=== PATIENT | male | born 1945 | race Caucasian/White ===

== ENCOUNTER 2017-11-14 07:30 | Inpatient (IN) | payer MEDICARE ==
[~2017-11-14] VITALS: Ht 180.3 cm; Wt 133.8 kg
[~2017-11-14 07:30] MED LIST: AMLO10TA PO; ATOR40TA71 PO; DOCU-28 PO; LISI1TAB13 PO; METO25TA6 PO
[2017-12-01 13:26] LABS: BASOPHILS % (AUTO) 0.4 % (0-1); CLARITY,URINE CLEAR (Clear); COLOR,URINE YELLOW (Yellow); EOSINOPHILS # (AUTO) 0.2 X10'3 (0-0.9); EOSINOPHILS % (AUTO) 1.8 % (0-6); GLUCOSE, URINE NEGATIVE (Neg); KETONES,URINE NEGATIVE (Neg); LEUKOCYTE ESTERASE ,URINE NEGATIVE (Neg); LYMPHOCYTES # (AUTO) 2.4 X10'3 (1.1-4.8); LYMPHOCYTES % (AUTO) 24.2 % (21-51); MEAN CORPUSCULAR HEMOGLOBIN 31.1 PG (27.0-31.0); MEAN CORPUSCULAR HGB CONC 34.1 % (33.0-36.5); MEAN CORPUSCULAR VOLUME 91.3 FL (78-98); MEAN PLATELET VOLUME 8.4 FL (7.4-10.4); MONOCYTES # (AUTO) 1.3 X10'3 (0-0.9); NEUTROPHILS # (AUTO) 5.9 X10'3 (1.8-7.7); NEUTROPHILS % (AUTO) 60.6 % (42-75); NITRITES, URINE NEGATIVE (Neg); OCCULT BLOOD,URINE NEGATIVE (Neg); PH,URINE 5.5 (4.8-8.0); PRE OP HEMATOCRIT 47.7 % (42.0-52.0); PRE OP HEMOGLOBIN 16.3 g/dL (14.0-17.9); PRE OP PLATELET COUNT 257 X10'3 (140-440); PROTEIN,URINE NEGATIVE (Neg); RED BLOOD COUNT 5.23 X10'6 (4.70-6.10); RED CELL DISTRIBUTION WIDTH 13.4 % (11.5-14.5); UROBILINOGEN,URINE 0.2 E.U/dL (0.2-1.0)
[2017-12-01 13:31] LABS: UA COLLECTION TYPE CLN CATCH MIDSTREAM
[2017-12-01] MEDS ORDERED: CALC1TAB PO (13:32)
[2017-12-01 13:35] LABS: PRE OP PROTIME 10.6 SECONDS (9.0-12.0)
[2017-12-01 13:37] LABS: HEMOGLOBIN A1C 6.1 % (4.5-6.2)
[2017-12-01 13:42] LABS: ALBUMIN 3.8 G/DL (3.4-5.0); ALKALINE PHOSPHATASE 79 IU/L (46-116); BLOOD UREA NITROGEN 21 MG/DL (7-18); BUN/CREATININE RATIO 14.3 (5.4-32.0); CALCIUM 9.3 MG/DL (8.5-10.1); CHLORIDE 102 MMOL/L (99-107); CREATININE 1.47 MG/DL (0.60-1.10); PRE OP ALT 52 U/L (30-65); PRE OP ANION GAP 10 (8-16); PRE OP AST 22 U/L (10-37); PRE OP BILIRUB, TOTAL 0.5 MG/DL (0.0-1.0); PRE OP GLUCOSE 125 MG/DL (70-104); PRE OP POTASSIUM 4.6 MMOL/L (3.4-5.1); PRE OP SODIUM 138 MMOL/L (135-145); TOTAL CARBON DIOXIDE 25.6 MMOL/L (24-32); TOTAL PROTEIN 7.8 G/DL (6.4-8.2); eGFR 47 ML/MIN
[2017-12-06] VITALS (31 sets, daily range): BP systolic 94–142; BP diastolic 48–88
[2017-12-06] MEDS ORDERED: ringers solution, lacted 1,000 ML IV SCH ×2 (05:00→08:22)
[2017-12-06] MEDS ORDERED: tranexamic acid inj. 1,500 MG in normal saline 100ml IV soln 85 ML IV ONE (05:30)
[2017-12-06] MEDS ORDERED: oxyCODONE SR 10mg (sust. release) tab PO ONE (05:30)
[2017-12-06] MEDS ORDERED: ceFAZolin inj. 3,000 MG in normal saline 100ml IV soln 100 ML IV ONE (05:30)
[2017-12-06] MEDS ORDERED: famotidine 20mg tablet PO ONE (05:30)
[2017-12-06] MEDS ORDERED: acetaminophen 325mg tablet PO ONE (05:30)
[2017-12-06] MEDS ORDERED: DOCUMENT DATE & TIME OF BETA-BLOCKER PO ONE (05:30)
[2017-12-06] MEDS ORDERED: gabapentin 300mg capsule PO ONE (05:30)
[2017-12-06] MEDS ORDERED: LIDOcaine 1% (10mg/ml) 2ml vial ONE (05:50)
[2017-12-06] MEDS ORDERED: ROPIVAcaine 0.5% (5mg/ml) 30ml vial ONE ×2 (06:46→07:08)
[2017-12-06] MEDS ORDERED: bacitracin inj 150,000 UNIT in sodium chloride irrig. sol 3,000 ML IR ONE (07:00)
[2017-12-06] MEDS ORDERED: tetracaine 1% (10mg/ml) pres. free inj. ONE (07:08)
[2017-12-06] MEDS ORDERED: BUPIVAcaine/PF 7.5mg/ml (0.75%) 10ml vial ONE (07:08)
[2017-12-06] MEDS ORDERED: MIDAZolam 1mg/ml 10ml vial ONE (07:11)
[2017-12-06] MEDS ORDERED: fentaNYL/PF 50MCG/1 ML 2ML syringe ONE (07:11)
[2017-12-06] MEDS ORDERED: cloNIDine hcl/PF 100mcg/ml inj ONE (08:09)
[2017-12-06] MEDS ORDERED: meperidine/PF 25mg/ml syringe IV PRN ×3 (08:25)
[2017-12-06] MEDS ORDERED: morphine 4 MG/ML inj SYRINge IV PRN ×2 (08:25)
[2017-12-06] MEDS ORDERED: ondansetron/PF 4mg/2ml inj IV PRN ×2 (08:25→10:05)
[2017-12-06] MEDS ORDERED: proCHLORperazine 10 MG/2 ml inj IV PRN (08:25)
[2017-12-06] MEDS ORDERED: phenylephrine 10mg/ml inj. ONE (08:43)
[2017-12-06] MEDS ORDERED: propofol inj 20 ML IV ONE (08:44)
[2017-12-06] MEDS ORDERED: ceFAZolin 1000mg inj ONE (08:46)
[2017-12-06] MEDS ORDERED: oxyCODONE/APAP 10/325mg tablet PO PRN (10:05)
[2017-12-06] MEDS ORDERED: magnesium hydroxide 30ml (MOM) UD suspension PO PRN (10:05)
[2017-12-06] MEDS ORDERED: acetaminophen 325mg tablet PO PRN (10:05)
[2017-12-06] MEDS ORDERED: bisacodyl 10mg suppository rectal RC PRN (10:05)
[2017-12-06] MEDS ORDERED: HYDROmorphone inj. 0.5 MG/0.5 ML DISP.SYRIN IV PRN (10:05)
[2017-12-06] MEDS ORDERED: diphenhydrAMINE 25mg capsule PO PRN ×2 (10:05)
[2017-12-06] MEDS ORDERED: HYDROmorphone 1 mg/ml syringe IV PRN (11:09)
[2017-12-06] MEDS: gabapentin 300mg capsule PO SCH ×2 (13:00→20:30)
[2017-12-06] MEDS: oxyCODONE/APAP 10/325mg tablet PO PRN ×2 (13:38→20:30)
[2017-12-06] MEDS: potassium cl 20mEq in 1/2 NS 1,000 ML IV SCH ×2 (15:53→18:04)
[2017-12-06] MEDS: ceFAZolin 1GM/D5W- ADD-VANTAGE 50 ML IV SCH (15:55)
[2017-12-06] MEDS: docusate sod 100mg capsule PO SCH (20:29)
[2017-12-06] MEDS: ascorbic acid 500mg tablet PO SCH (20:29)
[2017-12-06] MEDS: sennosides 8.6mg tablet PO SCH (20:29)
[2017-12-06] MEDS: metoprolol tartrate 25mg tablet PO SCH (20:29)
[2017-12-06] MEDS: atorvastatin 20mg tablet PO SCH (20:30)
[2017-12-06] MEDS ORDERED: non-formulary drug (Atorvastatin Calcium 1 TABLET) PO SCH (21:00)
[2017-12-07] MEDS: oxyCODONE/APAP 10/325mg tablet PO PRN ×5 (00:20→20:17)
[2017-12-07] MEDS: ceFAZolin 1GM/D5W- ADD-VANTAGE 50 ML IV SCH (00:21)
[2017-12-07 02:00] VITALS: BP 146/74
[2017-12-07] MEDS: potassium cl 20mEq in 1/2 NS 1,000 ML IV SCH (02:04)
[2017-12-07 05:00] VITALS: BP 136/66
[2017-12-07 05:58] LABS: BASOPHILS % (AUTO) 0.1 % (0-1); EOSINOPHILS % (AUTO) 0 % (0-6); HEMATOCRIT 42.4 % (42.0-52.0); HEMOGLOBIN 14.5 g/dl (14.0-17.9); LYMPHOCYTES # (AUTO) 1.3 X10'3 (1.1-4.8); LYMPHOCYTES % (AUTO) 7.8 % (21-51); MEAN CORPUSCULAR HEMOGLOBIN 31.7 PG (27.0-31.0); MEAN CORPUSCULAR HGB CONC 34.2 % (33.0-36.5); MEAN CORPUSCULAR VOLUME 92.6 FL (78-98); MEAN PLATELET VOLUME 8.8 FL (7.4-10.4); MONOCYTES # (AUTO) 1.6 X10'3 (0-0.9); MONOCYTES % (AUTO) 9.6 % (2-12); NEUTROPHILS # (AUTO) 13.6 X10'3 (1.8-7.7); NEUTROPHILS % (AUTO) 82.5 % (42-75); PLATELET COUNT 237 X10'3 (140-440); RED BLOOD COUNT 4.58 X10'6 (4.70-6.10); WHITE BLOOD COUNT 16.5 X10'3 (4.5-11.0)
[2017-12-07 06:04] LABS: INR 1.1 INR; PROTHROMBIN TIME 11.3 SECONDS (9.0-12.0)
[2017-12-07 06:27] LABS: ALANINE AMINOTRANSFERASE 35 U/L (12-78); ALBUMIN 3.1 G/DL (3.4-5.0); ALBUMIN/GLOBULIN RATIO 0.9 (1.1-1.5); ALKALINE PHOSPHATASE 50 IU/L (46-116); ANION GAP 10 (8-16); ASPARTATE AMINO TRANSFERASE 11 U/L (10-37); BILIRUBIN,TOTAL 0.5 MG/DL (0.1-1.0); BLOOD UREA NITROGEN 22 MG/DL (7-18); CALCIUM 8.1 MG/DL (8.5-10.1); CHLORIDE 99 MMOL/L (99-107); CREATININE 1.47 MG/DL (0.60-1.10); GLUCOSE 174 MG/DL (70-104); POTASSIUM 4.3 MMOL/L (3.5-5.1); SODIUM 134 MMOL/L (135-145); TOTAL CARBON DIOXIDE 25.2 MMOL/L (24-32); TOTAL PROTEIN 6.7 G/DL (6.4-8.2); eGFR 47 ML/MIN
[2017-12-07] MEDS ORDERED: non-formulary drug (Amlodipine Besylate 1 TABLET) PO SCH (08:00)
[2017-12-07] MEDS ORDERED: non-formulary drug (Lisinopril/Hydrochlorothiazide (Lisinopril-Hctz 20-25 mg Tab) 1 TAB) PO SCH (08:00)
[2017-12-07] MEDS: amLODIPine 5mg tablet PO SCH (08:33)
[2017-12-07] MEDS: gabapentin 300mg capsule PO SCH ×3 (08:34→21:00)
[2017-12-07] MEDS: docusate sod 100mg capsule PO SCH ×2 (08:34→20:17)
[2017-12-07] MEDS: multivitamins, therapeutics tablet PO SCH (08:34)
[2017-12-07] MEDS: lisinopril 20mg tablet PO SCH (08:34)
[2017-12-07] MEDS: ascorbic acid 500mg tablet PO SCH ×2 (08:34→20:17)
[2017-12-07] MEDS: HYDROchlorothiazide 25mg tablet PO SCH (08:34)
[2017-12-07] MEDS: metoprolol tartrate 25mg tablet PO SCH ×2 (08:34→20:17)
[2017-12-07 10:00] VITALS: BP 140/77
[2017-12-07] MEDS ORDERED: warfarin 10mg tablet PO ONE (10:00)
[2017-12-07 18:00] VITALS: BP 143/79
[2017-12-07] MEDS: NUT.TX.GLUC.INTOLER,LAC-FR,REG (BOOST GLUCOSE CONTROL) 237 ML PO SCH (18:00)
[2017-12-07 20:15] VITALS: BP 144/78
[2017-12-07] MEDS: sennosides 8.6mg tablet PO SCH (21:01)
[2017-12-07] MEDS: atorvastatin 20mg tablet PO SCH (21:01)
[2017-12-07 22:00] VITALS: BP 113/62
[2017-12-08] MEDS: oxyCODONE/APAP 10/325mg tablet PO PRN ×4 (01:06→14:04)
[2017-12-08 05:57] LABS: BASOPHILS % (AUTO) 0.2 % (0-1); EOSINOPHILS # (AUTO) 0.2 X10'3 (0-0.9); EOSINOPHILS % (AUTO) 1.6 % (0-6); HEMATOCRIT 40.6 % (42.0-52.0); HEMOGLOBIN 13.9 g/dl (14.0-17.9); LYMPHOCYTES # (AUTO) 2.2 X10'3 (1.1-4.8); LYMPHOCYTES % (AUTO) 15.5 % (21-51); MEAN CORPUSCULAR HEMOGLOBIN 31.6 PG (27.0-31.0); MEAN CORPUSCULAR HGB CONC 34.4 % (33.0-36.5); MEAN CORPUSCULAR VOLUME 92.1 FL (78-98); MEAN PLATELET VOLUME 8.7 FL (7.4-10.4); MONOCYTES # (AUTO) 2.3 X10'3 (0-0.9); MONOCYTES % (AUTO) 16.1 % (2-12); NEUTROPHILS # (AUTO) 9.4 X10'3 (1.8-7.7); NEUTROPHILS % (AUTO) 66.6 % (42-75); PLATELET COUNT 212 X10'3 (140-440); RED BLOOD COUNT 4.41 X10'6 (4.70-6.10); RED CELL DISTRIBUTION WIDTH 13.6 % (11.5-14.5); WHITE BLOOD COUNT 14.1 X10'3 (4.5-11.0)
[2017-12-08 06:00] VITALS: BP 141/75
[2017-12-08 06:08] LABS: INR 1.1 INR; PROTHROMBIN TIME 11.5 SECONDS (9.0-12.0)
[2017-12-08 06:16] LABS: ALANINE AMINOTRANSFERASE 29 U/L (12-78); ALBUMIN/GLOBULIN RATIO 0.8 (1.1-1.5); ALKALINE PHOSPHATASE 55 IU/L (46-116); ANION GAP 5 (8-16); ASPARTATE AMINO TRANSFERASE 17 U/L (10-37); BILIRUBIN,TOTAL 0.4 MG/DL (0.1-1.0); BLOOD UREA NITROGEN 25 MG/DL (7-18); BUN/CREATININE RATIO 18.4 (5.4-32.0); CALCIUM 8.4 MG/DL (8.5-10.1); CHLORIDE 99 MMOL/L (99-107); CREATININE 1.36 MG/DL (0.60-1.10); GLUCOSE 117 MG/DL (70-104); POTASSIUM 4.2 MMOL/L (3.5-5.1); SODIUM 134 MMOL/L (135-145); TOTAL CARBON DIOXIDE 29.9 MMOL/L (24-32); TOTAL PROTEIN 6.6 G/DL (6.4-8.2); eGFR 52 ML/MIN
[2017-12-08 07:05] LABS: PLATELET ESTIMATE NORMAL; TOTAL CELLS COUNTED 100
[2017-12-08] MEDS: metoprolol tartrate 25mg tablet PO SCH ×2 (07:30→20:42)
[2017-12-08] MEDS: HYDROchlorothiazide 25mg tablet PO SCH (07:31)
[2017-12-08] MEDS: lisinopril 20mg tablet PO SCH (07:31)
[2017-12-08] MEDS: amLODIPine 5mg tablet PO SCH (07:31)
[2017-12-08] MEDS: docusate sod 100mg capsule PO SCH ×2 (07:31→20:42)
[2017-12-08] MEDS: gabapentin 300mg capsule PO SCH ×3 (07:31→20:42)
[2017-12-08] MEDS: multivitamins, therapeutics tablet PO SCH (07:31)
[2017-12-08] MEDS: ascorbic acid 500mg tablet PO SCH ×2 (07:34→20:42)
[2017-12-08] MEDS: NUT.TX.GLUC.INTOLER,LAC-FR,REG (BOOST GLUCOSE CONTROL) 237 ML PO SCH ×2 (08:58→18:00)
[2017-12-08 10:00] VITALS: BP 134/73
[2017-12-08] MEDS ORDERED: warfarin 10mg tablet PO ONE (10:00)
[2017-12-08] MEDS ORDERED: acetaminophen 325mg tablet PO PRN (10:05)
[2017-12-08 18:00] VITALS: BP 131/70
[2017-12-08] MEDS: atorvastatin 20mg tablet PO SCH (20:42)
[2017-12-08] MEDS: sennosides 8.6mg tablet PO SCH (20:42)
[2017-12-08 22:00] VITALS: BP 148/84
[2017-12-09] MEDS: oxyCODONE/APAP 10/325mg tablet PO PRN ×2 (01:12→05:31)
[2017-12-09] MEDS ORDERED: phenazopyridine 100mg tablet PO PRN (05:15)
[2017-12-09 06:00] VITALS: BP 134/79
[2017-12-09 06:45] LABS: INR 1.4 INR; PROTHROMBIN TIME 14.6 SECONDS (9.0-12.0)
[2017-12-09 06:58] LABS: ALANINE AMINOTRANSFERASE 36 U/L (12-78); ALBUMIN/GLOBULIN RATIO 0.8 (1.1-1.5); ALKALINE PHOSPHATASE 54 IU/L (46-116); ANION GAP 11 (8-16); ASPARTATE AMINO TRANSFERASE 49 U/L (10-37); BILIRUBIN,TOTAL 0.9 MG/DL (0.1-1.0); BLOOD UREA NITROGEN 28 MG/DL (7-18); CALCIUM 8.5 MG/DL (8.5-10.1); CHLORIDE 99 MMOL/L (99-107); CREATININE 1.47 MG/DL (0.60-1.10); GLUCOSE 133 MG/DL (70-104); POTASSIUM 4.1 MMOL/L (3.5-5.1); SODIUM 133 MMOL/L (135-145); eGFR 47 ML/MIN
[2017-12-09 08:05] LABS: HEMATOCRIT 42.7 % (42.0-52.0); HEMOGLOBIN 14.5 g/dl (14.0-17.9); LYMPHOCYTES % (AUTO) 6.8 % (21-51); MEAN CORPUSCULAR HEMOGLOBIN 31.3 PG (27.0-31.0); MEAN PLATELET VOLUME 8.6 FL (7.4-10.4); MONOCYTES % (AUTO) 14.7 % (2-12); NEUTROPHILS % (AUTO) 78.1 % (42-75); PLATELET COUNT 236 X10'3 (140-440); RED BLOOD COUNT 4.64 X10'6 (4.70-6.10); RED CELL DISTRIBUTION WIDTH 13.5 % (11.5-14.5); WHITE BLOOD COUNT 16.1 X10'3 (4.5-11.0)
[2017-12-09 08:06] LABS: BASOPHILS % (AUTO) 0 % (0-1); EOSINOPHILS # (AUTO) 0.1 X10'3 (0-0.9); EOSINOPHILS % (AUTO) 0.4 % (0-6); LYMPHOCYTES # (AUTO) 1.1 X10'3 (1.1-4.8); MONOCYTES # (AUTO) 2.4 X10'3 (0-0.9); NEUTROPHILS # (AUTO) 12.6 X10'3 (1.8-7.7)
[2017-12-09] MEDS: HYDROchlorothiazide 25mg tablet PO SCH (08:47)
[2017-12-09] MEDS: lisinopril 20mg tablet PO SCH (08:47)
[2017-12-09] MEDS: gabapentin 300mg capsule PO SCH (08:48)
[2017-12-09] MEDS: multivitamins, therapeutics tablet PO SCH (08:48)
[2017-12-09] MEDS: docusate sod 100mg capsule PO SCH (08:48)
[2017-12-09] MEDS: amLODIPine 5mg tablet PO SCH (08:48)
[2017-12-09] MEDS: metoprolol tartrate 25mg tablet PO SCH (08:48)
[2017-12-09] MEDS: ascorbic acid 500mg tablet PO SCH (08:48)
[2017-12-09] MEDS: NUT.TX.GLUC.INTOLER,LAC-FR,REG (BOOST GLUCOSE CONTROL) 237 ML PO SCH (08:52)
[2017-12-09 10:00] VITALS: BP 130/74
[2017-12-09] MEDS ORDERED: warfarin 5mg tablet PO ONE (10:00)
[2017-12-09 10:48] LABS: PLATELET ESTIMATE NORMAL; TOTAL CELLS COUNTED 100
[2017-12-09 10:49] LABS: TOXIC VACUOLATION FEW
== END 2017-12-09 12:00 | DRG 470 ==
LOC: EDSTATUS 07:30 → PAS IN 12-06 05:31 → EDSTATUS 12-06 07:30 → ORTHO 4S 12-06 13:20
PROVIDERS: ADMIT Specialist; ATTEND Specialist
PROC: 3E0T3BZ Introduction of Anesthetic Agent into Peripheral Nerves and Plexi, Percutaneous Approach (ICD-10-PCS; 2017-12-06)
PROC: 0SRC0J9 Replacement of Right Knee Joint with Synthetic Substitute, Cemented, Open Approach (ICD-10-PCS; principal; 2017-12-06 07:11)
DX: M17.11 Unilateral primary osteoarthritis, right knee (principal); D62 Acute posthemorrhagic anemia; Z68.41 Body mass index [BMI] 40.0-44.9, adult; E78.5 Hyperlipidemia, unspecified; I48.2 Chronic atrial fibrillation; E11.22 Type 2 diabetes mellitus with diabetic chronic kidney disease; I12.9 Hypertensive chronic kidney disease with stage 1 through stage 4 chronic kidney disease, or unspecified chronic kidney disease; N32.89 Other specified disorders of bladder; E66.9 Obesity, unspecified; N18.3 Chronic kidney disease, stage 3 (moderate); Z96.652 Presence of left artificial knee joint; Z90.5 Acquired absence of kidney; Z88.8 Allergy status to other drugs, medicaments and biological substances; Z79.899 Other long term (current) drug therapy; Z85.528 Personal history of other malignant neoplasm of kidney
CPT/HCPCS: 36415; 71046; 73560; 80053; 81003; 82948; 83036; 85025; 85610; 85730; 87070; 93005; 97110; 97116; 97161; 97530; A6449; A6455; A7000; C1713; C1758; C1776; J0690; J0735; J1170; J2250; J2270; J2370; J2704; J2795; J3010; J3490; J7030; J7120